=== PATIENT | male | born 1965 | race Caucasian/White ===

== ENCOUNTER 2018-02-09 11:40 | Emergency (ER) | payer BC ==
[2018-02-09] MEDS: Oxymetazoline 0.05% Nasal Spray 15 ML Bottle NAS ONE (11:57)
[2018-02-09 14:03] VITALS: BP 149/85
--- NOTE | 2018-02-09 19:01 | EDM.PDOC ---
ED HPI GENERAL MEDICAL PROBLEM - General Chief Complaint: ENT Problem Stated Complaint: BLOODY NOSE Time Seen by Provider: 02/09/18 11:50 Source of Information: Reports: Patient History Limitations: Reports: No Limitations - History of Present Illness INITIAL COMMENTS - FREE TEXT/NARRATIVE: PtNic developed epistaxis approx. 1 hour before coming to ER. He states that he has recently been experiencing this. He denies any head or facial trauma. He states that the bleeding is present in the R nare, but states that it is occasionally coming from his L nare as well particularly when blowing his nose, etc. He denies any issues with coagulation or other blood dyscrasias. Onset: Today Location: Reports: Neck - Related Data Allergies Allergy/AdvReac Type Severity Reaction Status Date / Time hydrocodone Allergy Cannot Verified 02/09/18 13:52 Remember Home Meds: Home Meds . [Unable to Verify Home Med List] 02/09/18 [History] Past Medical History Cardiovascular History: Reports: High Cholesterol Endocrine/Metabolic History: Reports: Diabetes, Type I - Past Surgical History HEENT Surgical History: Reports: Tonsillectomy Male Surgical History: Reports: Vasectomy Musculoskeletal Surgical History: Reports: Arthroscopic Knee, Arthroscopic Procedure, Other (See Below) Other Musculoskeletal Surgeries/Procedures:: shoulder surgery. hand surgery/ trigger finger Social & Family History - Tobacco Use Smoking Status *Q: Never Smoker - Recreational Drug Use Recreational Drug Use: No ED ROS GENERAL - Review of Systems Review Of Systems: See Below Constitutional: Reports: No Symptoms HEENT: Reports: Other (epistaxis) Respiratory: Reports: No Symptoms Cardiovascular: Reports: No Symptoms GI/Abdominal: Reports: No Symptoms Musculoskeletal: Reports: No Symptoms Skin: Reports: No Symptoms Neurological: Reports: No Symptoms ED EXAM, GENERAL - Physical Exam Exam: See Below Exam Limited By: No Limitations General Appearance: Alert, WD/WN, No Apparent Distress Nose: Other (epistaxis primarily from R nare) Throat/Mouth: Normal Inspection, Normal Lips, Normal Teeth, Normal Gums, Normal Oropharynx, Normal Voice, No Airway Compromise Head: Atraumatic, Normocephalic Neck: Normal Inspection, Supple, Non-Tender, Full Range of Motion Respiratory/Chest: No Respiratory Distress, Lungs Clear, Normal Breath Sounds, No Accessory Muscle Use, Chest Non-Tender Cardiovascular: Normal Peripheral Pulses, Regular Rate, Rhythm, No Edema, No Gallop, No JVD, No Murmur, No Rub GI/Abdominal: Normal Bowel Sounds, Soft, Non-Tender, No Organomegaly, No Distention, No Abnormal Bruit, No Mass ED GENERAL MEDICAL PROCEDURES - Additional/Other Procedure(s) Other (Free Text) Procedure(s): Unable to visualize source of bleeding. 2 sprays of afrin and 2 ml. of 1% lidocaine were instilled in R nare. 7.5cm packing placed in R nare. Pt. tolerated this well. Course - Vital Signs Last Recorded V/S: Last Vital Signs Temp 36.6 C 02/09/18 11:50 Pulse 94 02/09/18 11:50 Resp 16 02/09/18 11:50 BP 149/85 H 02/09/18 11:50 Pulse Ox - Orders/Labs/Meds Meds: Medications Discontinued Medications Generic Name Dose Route Start Last Admin Trade Name Toyq PRN Reason Stop Dose Admin Lidocaine HCl 5 ml 02/09/18 12:03 02/09/18 12:05 Xylocaine-Mpf 1% INJECT 02/09/18 12:04 5 ml ONETIME ONE Administration Oxymetazoline HCl 1 ml 02/09/18 11:49 02/09/18 11:57 Afrin Original 0.05% Nasal [place] NEETA 02/09/18 11:50 3 sprays ONETIME ONE Administration Departure - Departure Time of Disposition: 12:45 Disposition: Home, Self-Care 01 Condition: Good Clinical Impression: Epistaxis - Discharge Information Instructions: Nosebleed, Adult, [id number], Phenylephrine nasal spray Referrals: PCP,Not In Area [Primary Care Provider] - Forms: ED Department Discharge Additional Instructions: Follow-up in clinic in 24 hours for removal of nasal packing. Tylenol and ibuprofen for discomfort. Return to ER if packing becomes dislodged or if you have other problems/ concerns. Recheck in the clinic in 10-14 days.
== END 2018-02-09 12:45 | disposition home or self-care (01) ==
LOC: VM.ED 11:40
DX: R04.0 Epistaxis (principal); E78.00 Pure hypercholesterolemia, unspecified; E10.9 Type 1 diabetes mellitus without complications; Z88.5 Allergy status to narcotic agent
CPT/HCPCS: 30903; 99283; A9270